=== PATIENT | female | born 1990 | race African-American/Black ===

== ENCOUNTER → 2016-11-10 | Outpatient (CLI) | payer OTHER ==
--- NOTE | 2016-11-11 07:59 | RAD ---
EXAM: Left ankle, 3 views: Left tibia and fibula, 2 views. HISTORY: Fall. COMPARISON: None. FINDINGS: Frontal, lateral and mortise views of the left ankle and frontal and lateral views of the tibia and fibula are obtained. There is no fracture, dislocation or subluxation. There is a tiny plantar spur. There is ankle and hindfoot soft tissue swelling, a component of which may be due to dependent edema. IMPRESSION: 1. No acute osseous finding. 2. Left ankle and hindfoot soft tissue swelling, a component of which may be due to dependent edema.
== END | disposition home or self-care (01) ==
LOC: RAD 17:02
PROVIDERS: ATTEND Nurse Practitioner Family
DX: M25.872 Other specified joint disorders, left ankle and foot (principal); M25.572 Pain in left ankle and joints of left foot; M79.662 Pain in left lower leg; M79.89 Other specified soft tissue disorders
CPT/HCPCS: 73590; 73610

== ENCOUNTER 2018-07-29 11:37 | Emergency (ER) | payer SELFPAY ==
[~2018-07-29] VITALS: Ht 172.7 cm; Wt 167.8 kg
[2018-07-29] MEDS ORDERED: IV NORMAL SALINE 1000ML BAG 1,000 ML IV SCH (12:36)
--- NOTE | 2018-07-29 12:40 | PHYS DOC ---
Adult General Chief Complaint Chief Complaint: ABDOMINAL PAIN HPI HPI Patient is a 28-year-old female who presents with a primary complaint of lightheadedness for the last couple of days. She states that her blood sugar has been messing with her but admits that she does not check her blood sugar at home. She states that she has her blood sugar checked at her doctor's office. She states that she saw her doctor last week and said that her blood sugar was out of whack at that time but she doesn't remember what it was. She also complains of some upper abdominal discomfort that she rates is very mild at this time. She states that that had started earlier today. She denies any nausea or vomiting and has had no diarrhea. She denies any headache, chest pain or shortness of breath. Review of Systems Review of Systems Constitutional: Denies fever or chills [] Respiratory: Denies cough or shortness of breath [] Cardiovascular: No additional information not addressed in HPI [] GI: Complains of epigastric discomfort without nausea, vomiting or diarrhea [] : Denies dysuria or hematuria [] Neurologic: Denies headache, focal weakness or sensory changes [] Endocrine: Denies polyuria or polydipsia [] All other systems were reviewed and found to be within normal limits, except as documented in this note. Current Medications Current Medications Current Medications Medications (Trade) Dose Ordered Sig/Nyasia Start Time Stop Time Status Last Admin Dose Admin Sodium Chloride 1,000 ml @ 1,000 mls/hr Q1H 07/29/18 12:36 07/29/18 13:35 DC 07/29/18 13:04 1,000 MLS/HR Allergies Allergies Allergies Coded Allergies Type Severity Reaction Last Updated Verified No Known Drug Allergies 07/29/18 No Physical Exam Physical Exam Constitutional: Well developed, well nourished, no acute distress, non-toxic appearance. [] HENT: Normocephalic, atraumatic, bilateral external ears normal, oropharynx moist, no oral exudates, nose normal. [] Eyes: PERRLA, EOMI, conjunctiva normal, no discharge. [] Neck: Normal range of motion, no tenderness, supple, no stridor. [] Cardiovascular: Regular rate and rhythm[] Lungs & Thorax: Bilateral breath sounds clear to auscultation [] Abdomen: Bowel sounds normal, soft, no tenderness. [] Skin: Warm, dry, no erythema, no rash. [] Extremities: No tenderness, no cyanosis, no clubbing, ROM intact. [] Neurologic: Alert and oriented X 3, no focal deficits noted. [] Current Patient Data Vital Signs Vital Signs Date Time Temp Pulse Resp B/P (MAP) Pulse Ox O2 Delivery O2 Flow Rate FiO2 07/29/18 12:42 98.0 77 16 152/73 (99) 100 Room Air 98.0 Lab Values Laboratory Tests Test 07/29/18 13:00 07/29/18 14:05 07/29/18 14:16 White Blood Count 10.6 x10^3/uL (4.0-11.0) Red Blood Count 5.24 x10^6/uL (3.50-5.40) Hemoglobin 10.6 g/dL (12.0-15.5) L Hematocrit 34.0 % (36.0-47.0) L Mean Corpuscular Volume 65 fL (79-100) L Mean Corpuscular Hemoglobin 20 pg (25-35) L Mean Corpuscular Hemoglobin Concent 31 g/dL (31-37) Red Cell Distribution Width 17.0 % (11.5-14.5) H Platelet Count 265 x10^3/uL (140-400) Neutrophils (%) (Auto) 66 % (31-73) Lymphocytes (%) (Auto) 25 % (24-48) Monocytes (%) (Auto) 8 % (0-9) Eosinophils (%) (Auto) 1 % (0-3) Basophils (%) (Auto) 0 % (0-3) Neutrophils # (Auto) 7.0 x10^3uL (1.8-7.7) Lymphocytes # (Auto) 2.6 x10^3/uL (1.0-4.8) Monocytes # (Auto) 0.9 x10^3/uL (0.0-1.1) Eosinophils # (Auto) 0.1 x10^3/uL (0.0-0.7) Basophils # (Auto) 0.0 x10^3/uL (0.0-0.2) Platelet Estimate Adequate (ADEQUATE) Polychromasia Slight Hypochromasia Mod Microcytosis Marked Sodium Level 139 mmol/L (136-145) Potassium Level 4.1 mmol/L (3.5-5.1) Chloride Level 101 mmol/L (98-107) Carbon Dioxide Level 31 mmol/L (21-32) Anion Gap 7 (6-14) Blood Urea Nitrogen 10 mg/dL (7-20) Creatinine 0.8 mg/dL (0.6-1.0) Estimated GFR (Cockcroft-Gault) 103.3 BUN/Creatinine Ratio 13 (6-20) Glucose Level 135 mg/dL (70-99) H Calcium Level 8.9 mg/dL (8.5-10.1) Total Bilirubin 0.3 mg/dL (0.2-1.0) Aspartate Amino Transferase (AST) 17 U/L (15-37) Alanine Aminotransferase (ALT) 17 U/L (14-59) Alkaline Phosphatase 90 U/L (46-116) Total Protein 8.5 g/dL (6.4-8.2) H Albumin 2.9 g/dL (3.4-5.0) L Albumin/Globulin Ratio 0.5 (1.0-1.7) L Lipase 87 U/L (73-393) Urine Collection Type Unknown Urine Color Yellow Urine Clarity Clear Urine pH 7.0 Urine Specific [place] 1.020 Urine Protein Negative mg/dL (NEG-TRACE) Urine Glucose (UA) Negative mg/dL (NEG) Urine Ketones (Stick) Negative mg/dL (NEG) Urine Blood Small (NEG) Urine Nitrite Negative (NEG) Urine Bilirubin Negative (NEG) Urine Urobilinogen Dipstick 0.2 mg/dL (0.2 mg/dL) Urine Leukocyte Esterase Negative (NEG) Urine RBC 0 /HPF (0-2) Urine WBC Rare /HPF (0-4) Urine Squamous Epithelial Cells Occ /LPF Urine Bacteria 0 /HPF (0-FEW) POC Urine HCG, Qualitative Hcg negative (Negative) Laboratory Tests 07/29/18 13:00 Laboratory Tests 07/29/18 13:00 EKG EKG [] Radiology/Procedures Radiology/Procedures [] Course & Med Decision Making Course & Med Decision Making Pertinent Labs and Imaging studies reviewed. (See chart for details) [] Dragon Disclaimer Dragon Disclaimer This electronic medical record was generated, in whole or in part, using a voice recognition dictation system. Departure Departure Impression: Primary Impression: Lightheadedness Disposition: HOME, SELF-CARE Condition: STABLE Referrals: NO PCP (PCP) Patient Instructions: Dizziness, [id number] Scripts Meclizine Hcl (MECLIZINE HCL) 25 Mg Tablet 25 MG PO PRN TID PRN for DIZZINESS, #30 dizziness Prov: DOROTHEA FARRELL Jr. DO 07/29/18 DOROTHEA FARRELL Jr. DO Jul 29, 2018 12:40
[2018-07-29 13:14] LABS: BASO % 0 % (0-3); EOS # 0.1 x10^3/uL (0.0-0.7); EOS % 1 % (0-3); HEMOGLOBIN 10.6 g/dL (12.0-15.5); LYMPH # 2.6 x10^3/uL (1.0-4.8); LYMPH % 25 % (24-48); MEAN CORPUSCULAR HEMOGLOBIN 20 pg (25-35); MEAN CORPUSCULAR HGB CONC 31 g/dL (31-37); MEAN CORPUSCULAR VOLUME 65 fL (79-100); MONO # 0.9 x10^3/uL (0.0-1.1); MONO % 8 % (0-9); NEUT % 66 % (31-73); PLATELET COUNT 265 x10^3/uL (140-400); RED BLOOD COUNT 5.24 x10^6/uL (3.50-5.40); WHITE BLOOD COUNT 10.6 x10^3/uL (4.0-11.0)
[2018-07-29 13:31] VITALS: BP 136/59
[2018-07-29 13:34] LABS: CALCIUM 8.9 mg/dL (8.5-10.1); CREATININE 0.8 mg/dL (0.6-1.0); GFR 103.3; POTASSIUM 4.1 mmol/L (3.5-5.1)
[2018-07-29 13:40] LABS: ALBUMIN 2.9 g/dL (3.4-5.0); ALBUMIN/GLOBULIN RATIO 0.5 (1.0-1.7); TOTAL BILIRUBIN 0.3 mg/dL (0.2-1.0); TOTAL PROTEIN 8.5 g/dL (6.4-8.2)
[2018-07-29 14:36] LABS: BILIRUBIN,URINE NEGATIVE (NEG); CLARITY,URINE CLEAR; COLOR,URINE YELLOW; NITRITE,URINE NEGATIVE (NEG); PROTEIN,URINE NEGATIVE (NEG-TRACE); UROBILINOGEN,URINE 0.2 mg/dL (0.2 mg/dL)
[2018-07-29 14:57] LABS: BACTERIA,URINE 0 /HPF (0-FEW); RBC,URINE 0 /HPF (0-2); SQUAMOUS EPITHELIAL CELL,UR OCC /LPF; WBC,URINE RARE /HPF (0-4)
[2018-07-29 15:00] LABS: HYPOCHROMIA MOD; MICROCYTOSIS MARKED; PLT ESTIMATE ADEQUATE (ADEQUATE); POLYCHROMASIA SLIGHT
[2018-07-29] MEDS ORDERED: MECL25TA3 PO (15:17)
== END 2018-07-29 16:01 | disposition home or self-care (01) ==
LOC: ER 11:37
DX: R42 Dizziness and giddiness (principal)
CPT/HCPCS: 36415; 80053; 81001; 81025; 83690; 85025; 96360; 99283; J7030; 99284

== ENCOUNTER 2018-08-30 13:45 | Emergency (ER) | payer SELFPAY ==
[~2018-08-30] VITALS: Ht 167.6 cm; Wt 167.8 kg
[~2018-08-30 13:45] MED LIST: MECL25TA3 PO
[2018-08-30 14:51] LABS: CALCIUM 8.4 mg/dL (8.5-10.1); CREATININE 0.9 mg/dL (0.6-1.0); GFR 90.2; POTASSIUM 3.7 mmol/L (3.5-5.1)
[2018-08-30 14:52] LABS: BASO % 1 % (0-3); EOS # 0.1 x10^3/uL (0.0-0.7); EOS % 1 % (0-3); HEMATOCRIT 31.3 % (36.0-47.0); HEMOGLOBIN 9.8 g/dL (12.0-15.5); LYMPH # 3.2 x10^3/uL (1.0-4.8); LYMPH % 32 % (24-48); MEAN CORPUSCULAR HEMOGLOBIN 20 pg (25-35); MEAN CORPUSCULAR HGB CONC 31 g/dL (31-37); MEAN CORPUSCULAR VOLUME 65 fL (79-100); MONO % 10 % (0-9); NEUT # 5.7 x10^3uL (1.8-7.7); NEUT % 56 % (31-73); PLATELET COUNT 305 x10^3/uL (140-400); RED BLOOD COUNT 4.81 x10^6/uL (3.50-5.40); RED CELL DISTRIBUTION WIDTH 17.3 % (11.5-14.5)
[2018-08-30 14:53] LABS: BILIRUBIN,URINE NEGATIVE (NEG); CLARITY,URINE CLEAR; COLOR,URINE YELLOW; NITRITE,URINE NEGATIVE (NEG); PH,URINE 6.5; PROTEIN,URINE NEGATIVE (NEG-TRACE); UROBILINOGEN,URINE 0.2 mg/dL (0.2 mg/dL)
[2018-08-30 14:57] LABS: ALBUMIN 2.8 g/dL (3.4-5.0); ALBUMIN/GLOBULIN RATIO 0.5 (1.0-1.7); TOTAL BILIRUBIN 0.2 mg/dL (0.2-1.0); TOTAL PROTEIN 8.2 g/dL (6.4-8.2)
[2018-08-30 15:06] LABS: BACTERIA,URINE 0 /HPF (0-FEW); SQUAMOUS EPITHELIAL CELL,UR OCC /LPF; WBC,URINE OCC /HPF (0-4)
[2018-08-30] MEDS ORDERED: IV NORMAL SALINE 1000ML BAG 1,000 ML IV ONE (15:30)
[2018-08-30] MEDS ORDERED: DICY10CA3 PO (16:23)
[2018-08-30 16:27] LABS: MICROCYTOSIS SLIGHT; OVALOCYTES OCC; PLT ESTIMATE ADEQUATE (ADEQUATE); POLYCHROMASIA SLIGHT
[2018-08-30 16:45] VITALS: BP 122/79
[2018-08-30] MEDS: DICYCLOMINE HCL 10 MG CAPSULE PO ONE (16:45)
--- NOTE | 2018-08-30 17:28 | PHYS DOC ---
Past Medical History Past Medical History: Diabetes-Type II Additional Past Medical Histor: OBESTIY Past Surgical History: Tonsillectomy Alcohol Use: None Drug Use: None Adult General Chief Complaint Chief Complaint: ABDOMINAL PAIN HPI HPI Patient is a 28 year old afebrile female who presents with abdominal pain and diarrhea. Pt reports the onset of cramping abdominal pain, diarrhea, and vomiting this sunday (08/25/18). She notes that sunday was the only day she vomited. Her diarrhea has not subsided though and pt has had continuing lower abdominal cramping. Today she came to the ER because her "diarrhea was red," and she didn't know if it was blood or was discoloration from the fruit punch she drank. This only happened once. PT admits to urinary and fecal urgency, having recent sick contacts, and suprapubic pain. She denies cough, fever, chills, SOB, nausea, vomit, lightheadedness, and BARNES's. She is a type 2 diabetic and was prescribed metformin (she still has refills and the pills); but, she does not take her medications nor does she check her blood sugars or see a doctor for her A1C levels. She reports her LMP as "the past month," stating she has been spotting the whole month and this is normal for her. Review of Systems Review of Systems Constitutional: Denies fever or chills Eyes: Denies change in visual acuity, redness, or eye pain HENT: Denies nasal congestion or sore throat Respiratory: Denies cough or shortness of breath Cardiovascular: No additional information not addressed in HPI GI: Denies, nausea, vomiting. Admits to diarrhea, fecal urgency, lower abdominal cramping/pain and possibly a bloody BM today (09/03) : Denies dysuria or hematuria. Admits to urinary frequency and suprapubic pain Musculoskeletal: Denies back pain or joint pain Integument: Denies rash or skin lesions Neurologic: Denies headache, focal weakness or sensory changes Endocrine: Denies polyuria or polydipsia All other systems were reviewed and found to be within normal limits, except as documented in this note. Current Medications Current Medications Current Medications Medications (Trade) Dose Ordered Sig/Nyasia Start Time Stop Time Status Last Admin Dose Admin Dicyclomine HCl (Bentyl) 10 mg 1X ONCE 08/30/18 15:30 08/30/18 15:31 DC 08/30/18 16:45 10 MG Sodium Chloride 1,000 ml @ 1,000 mls/hr 1X ONCE 08/30/18 15:30 08/30/18 16:29 DC Allergies Allergies Allergies Coded Allergies Type Severity Reaction Last Updated Verified No Known Drug Allergies 07/29/18 No Physical Exam Physical Exam Constitutional: Well nourished, no acute distress, non-toxic appearance. HENT: Normocephalic, atraumatic, bilateral external ears normal, oropharynx moist, no oral exudates, nose normal. Eyes: PERRLA, EOMI, conjunctiva normal, no discharge. Neck: Normal range of motion, no tenderness, supple, no stridor. Cardiovascular:Heart rate regular rhythm, no murmur Lungs & Thorax: Bilateral breath sounds clear to auscultation Abdomen: Bowel sounds normal in L and R upper quadrant, hyperactive in L and R lower quadrants. Palpation did not elicit tenderness in the suprapubic region, LLQ, or RLQ. Morbidly Obese, no scars or ascites, soft, no masses, no pulsatile masses. Skin: Warm, dry, no erythema, no rash. Back: No tenderness, no CVA tenderness. Extremities: No tenderness, no cyanosis, no clubbing, ROM intact, no edema. Neurologic: Alert and oriented X 3, normal motor function, normal sensory function, no focal deficits noted. Psychologic: Affect normal, judgement normal, mood normal. Current Patient Data Vital Signs Vital Signs Date Time Temp Pulse Resp B/P (MAP) Pulse Ox O2 Delivery O2 Flow Rate FiO2 08/30/18 16:45 78 16 122/79 (93) 08/30/18 14:15 97.7 99 Room Air 97.7 Lab Values Laboratory Tests Test 08/30/18 13:48 08/30/18 14:07 08/30/18 14:10 Urine Color Yellow Urine Clarity Clear Urine pH 6.5 Urine Specific [place] 1.015 Urine Protein Negative mg/dL (NEG-TRACE) Urine Glucose (UA) Negative mg/dL (NEG) Urine Ketones (Stick) Negative mg/dL (NEG) Urine Blood Small (NEG) Urine Nitrite Negative (NEG) Urine Bilirubin Negative (NEG) Urine Urobilinogen Dipstick 0.2 mg/dL (0.2 mg/dL) Urine Leukocyte Esterase Negative (NEG) Urine RBC 3-5 /HPF (0-2) Urine WBC Occ /HPF (0-4) Urine Squamous Epithelial Cells Occ /LPF Urine Bacteria 0 /HPF (0-FEW) Urine Mucus Slight /LPF POC Urine HCG, Qualitative Hcg negative (Negative) White Blood Count 10.0 x10^3/uL (4.0-11.0) Red Blood Count 4.81 x10^6/uL (3.50-5.40) Hemoglobin 9.8 g/dL (12.0-15.5) L Hematocrit 31.3 % (36.0-47.0) L Mean Corpuscular Volume 65 fL (79-100) L Mean Corpuscular Hemoglobin 20 pg (25-35) L Mean Corpuscular Hemoglobin Concent 31 g/dL (31-37) Red Cell Distribution Width 17.3 % (11.5-14.5) H Platelet Count 305 x10^3/uL (140-400) Neutrophils (%) (Auto) 56 % (31-73) Lymphocytes (%) (Auto) 32 % (24-48) Monocytes (%) (Auto) 10 % (0-9) H Eosinophils (%) (Auto) 1 % (0-3) Basophils (%) (Auto) 1 % (0-3) Neutrophils # (Auto) 5.7 x10^3uL (1.8-7.7) Lymphocytes # (Auto) 3.2 x10^3/uL (1.0-4.8) Monocytes # (Auto) 1.0 x10^3/uL (0.0-1.1) Eosinophils # (Auto) 0.1 x10^3/uL (0.0-0.7) Basophils # (Auto) 0.0 x10^3/uL (0.0-0.2) Platelet Estimate Adequate (ADEQUATE) Large Platelets Occ Polychromasia Slight Microcytosis Slight Ovalocytes Occ Sodium Level 140 mmol/L (136-145) Potassium Level 3.7 mmol/L (3.5-5.1) Chloride Level 101 mmol/L (98-107) Carbon Dioxide Level 32 mmol/L (21-32) Anion Gap 7 (6-14) Blood Urea Nitrogen 12 mg/dL (7-20) Creatinine 0.9 mg/dL (0.6-1.0) Estimated GFR (Cockcroft-Gault) 90.2 BUN/Creatinine Ratio 13 (6-20) Glucose Level 167 mg/dL (70-99) H Calcium Level 8.4 mg/dL (8.5-10.1) L Total Bilirubin 0.2 mg/dL (0.2-1.0) Aspartate Amino Transferase (AST) 15 U/L (15-37) Alanine Aminotransferase (ALT) 19 U/L (14-59) Alkaline Phosphatase 86 U/L (46-116) Total Protein 8.2 g/dL (6.4-8.2) Albumin 2.8 g/dL (3.4-5.0) L Albumin/Globulin Ratio 0.5 (1.0-1.7) L Lipase 124 U/L (73-393) Laboratory Tests 08/30/18 14:10 Laboratory Tests 08/30/18 14:10 EKG EKG [] Radiology/Procedures Radiology/Procedures [] Course & Med Decision Making Course & Med Decision Making 28 yo afebrile female, w/ a history of uncontrolled and unregulated DM2, presents with a week duration of abdominal cramping pain and diarrhea. Pt came into the ER today because she believes her diarrhea today had blood in it - she notes that it was "discolored" and thinks it may be due to the fruit punch she drank last night. She states onset of diarrhea and abdominal cramping pain this past Sunday (08/25/18), later followed by emesis which has not occurred since per pt. She admits recent sick contacts and fecal urgency. On PE she was not TTP in any of her abdominal quadrants or suprapubic region. Bowel sounds were hyperactive in LL and RLQ's, and normal in KEVIN and RU her Q's. She denies cough, fever, chills, sob, n/v, lightheadedness, and BARNES's. LMP was "this whole past month," in which the pt states she's been spotting every day. Workup bHCG, CBC, CMP -- fairly unremarkable overall, cbc hb mostly stable overall. doubt acute gi bleed baserd on history. CT abd/pelvis - discussed with pt why a CT was ordered, what we were looking for , and the risks/benefits of the CT. she did not want imaging to be done. Pt was educated on the risks of not getting this done and she stated she understood these risks but still does not want a CT to be done. She is of sound mind she plans to come back in 12-[address] if sypmtoms persist or worsening in anyway. low overall suspicion for diverticulitis or appendicitis. UA IV Fluids Lipase Dragon Disclaimer Dragon Disclaimer This electronic medical record was generated, in whole or in part, using a voice recognition dictation system. Departure Departure Impression: Primary Impression: Abdominal pain Disposition: HOME, SELF-CARE Condition: STABLE Patient Instructions: Abdominal Pain (Nonspecific) Scripts Dicyclomine Hcl (DICYCLOMINE HCL) 10 Mg Capsule 1 CAP PO TID, #30 CAP 1 Refill Prov: IFTIKHAR KRAUS MD 08/30/18 IFTIKHAR KRAUS MD Aug 30, 2018 17:28
== END 2018-08-30 16:52 | disposition home or self-care (01) ==
LOC: ER 13:45
DX: R10.31 Right lower quadrant pain (principal); R10.32 Left lower quadrant pain; R11.2 Nausea with vomiting, unspecified; R19.7 Diarrhea, unspecified; E11.9 Type 2 diabetes mellitus without complications; R15.2 Fecal urgency; R39.15 Urgency of urination; E66.01 Morbid (severe) obesity due to excess calories; Z68.43 Body mass index [BMI] 50.0-59.9, adult; Z90.89 Acquired absence of other organs
CPT/HCPCS: 36415; 80053; 81001; 81025; 83690; 85025; 99283

== ENCOUNTER 2018-11-07 16:18 | Emergency (ER) | payer SELFPAY ==
[~2018-11-07] VITALS: Ht 172.7 cm; Wt 170.6 kg
[~2018-11-07 16:18] MED LIST changes: +DICY10CA3 PO
[2018-11-07 16:35] VITALS: BP 157/97
--- NOTE | 2018-11-07 17:16 | PHYS DOC ---
Past Medical History Past Medical History: Diabetes-Type II Additional Past Medical Histor: OBESTIY Past Surgical History: Tonsillectomy Alcohol Use: None Drug Use: None Adult General Chief Complaint Chief Complaint: HAND PROBLEM HPI HPI Patient is a 28 year old female with a history of diabetes type 2 who presents to the ED today complaining of tingling sensation to bilateral fingers and left foot that has been going on for weeks. Patient denies any known injury. She states she followed up with her PCP who put on medication which she refused to take because she did not know why she was taking the medication. She states she also does not take her metformin for her diabetes. Review of Systems Review of Systems Constitutional: Denies fever or chills [] Eyes: Denies change in visual acuity, redness, or eye pain [] HENT: Denies nasal congestion or sore throat [] Respiratory: Denies cough or shortness of breath [] Cardiovascular: No additional information not addressed in HPI [] GI: Denies abdominal pain, nausea, vomiting, bloody stools or diarrhea [] : Denies dysuria or hematuria [] Musculoskeletal: Reports tingling to bilateral fingers and left foot. Denies back pain or joint pain [] Integument: Denies rash or skin lesions [] Neurologic: Denies headache, focal weakness or sensory changes [] All other systems were reviewed and found to be within normal limits, except as documented in this note. Allergies Allergies Allergies Coded Allergies Type Severity Reaction Last Updated Verified No Known Drug Allergies 07/29/18 No Physical Exam Physical Exam Constitutional: Well developed, well nourished, no acute distress, non-toxic appearance. [] HENT: Normocephalic, atraumatic, bilateral external ears normal, oropharynx moist, no oral exudates, nose normal. [] Eyes: PERRLA, EOMI, conjunctiva normal, no discharge. [] Neck: Normal range of motion, no tenderness, supple, no stridor. [] Cardiovascular:Heart rate regular rhythm, no murmur [] Lungs & Thorax: Bilateral breath sounds clear to auscultation [] Abdomen: Bowel sounds normal, soft, no tenderness, no masses, no pulsatile masses. [] Skin: Warm, dry, no erythema, no rash. [] Back: No tenderness, no CVA tenderness. [] Extremities: No tenderness, no cyanosis, no clubbing, ROM intact, no edema. [] Neurologic: Alert and oriented X 3, normal motor function, normal sensory function, no focal deficits noted. [] Psychologic: Affect normal, judgement normal, mood normal. [] Current Patient Data Vital Signs Vital Signs Date Time Temp Pulse Resp B/P (MAP) Pulse Ox O2 Delivery O2 Flow Rate FiO2 11/07/18 16:35 98.9 95 16 157/97 (117) 99 Room Air 98.9 Lab Values Laboratory Tests Test 11/07/18 17:01 Glucose (Fingerstick) 255 mg/dL (70-99) H EKG EKG [] Radiology/Procedures Radiology/Procedures [] Course & Med Decision Making Course & Med Decision Making Pertinent Labs and Imaging studies reviewed. (See chart for details) This is a 28-year-old female patient overweight and has history of diabetes presenting today with tingling to bilateral fingers and left foot. This appears to be related to her diabetes. She is noncompliant and is not taking her metformin BG in the Ed 255 she states her A1C is around 8. She was already seen by the PCP for this tingling was put on medication which she refused to take. I had a lengthy discussion about diabetes and the long-term effects including diabetes end organ damage. Provided patient instructions to consider following up with a primary care doctor if she doesn't like the current one she can choose one from the list provided. Patient was reminded the importance of losing weight and being compliant with her diabetes medicines and diet. Her blood pressure was also in the 150s over 90s. Recommended following up for diabetes as well as high blood pressure with a Primary care doctor. Jane Disclaimer Dragon Disclaimer This electronic medical record was generated, in whole or in part, using a voice recognition dictation system. Departure Departure Impression: Primary Impression: Hyperglycemia Additional Impressions: Diabetes mellitus with neuropathy Elevated blood pressure reading Disposition: HOME, SELF-CARE Condition: STABLE Referrals: NO PCP (PCP) Please establish care with a doctor from the list provided if you do not like your current primary care doctor Patient Instructions: 1800 Calorie Diet for Diabetes Meal Planning, Diabetic Neuropathy, Hyperglycemia, [id number], Hypertension Additional Instructions: You were evaluated in the emergency room with symptoms suspicious of diabetes neuropathy. Your blood glucose was 255 this is high. We prefer blood glucose to be between 70-99. Your blood pressure was also running high in the 150s over 90s. Normal blood pressures less than 120/80. We highly recommend you follow-up with her primary care doctor. Weight loss is helpful. Consider avoiding fatty foods, greasy foods, salty foods, fluids with added sugars. See the attached list of diabetic diet information. Problem Qualifiers Additional Impressions: Diabetes mellitus with neuropathy Diabetes mellitus type: type 2 Diabetes mellitus exterminator helper termite insulin use: without exterminator helper termite use Qualified Codes: E11.40 - Type 2 diabetes mellitus with diabetic neuropathy, unspecified CHANDA ADAME BR[employer] MANAGER November 07, 2018 17:16
== END 2018-11-07 18:01 | disposition home or self-care (01) ==
LOC: ER 16:18
DX: E11.65 Type 2 diabetes mellitus with hyperglycemia (principal); E11.40 Type 2 diabetes mellitus with diabetic neuropathy, unspecified; R03.0 Elevated blood-pressure reading, without diagnosis of hypertension; Z90.89 Acquired absence of other organs; E66.9 Obesity, unspecified; Z68.43 Body mass index [BMI] 50.0-59.9, adult
CPT/HCPCS: 82962; 99283